=== PATIENT | male | born 1970 | race Caucasian/White ===

== ENCOUNTER 2018-04-09 11:03 | Emergency (ER) | payer BC, MEDICARE ==
[2018-04-09] MEDS ORDERED: Ketorolac 30 MG/ML SDV IM ONE (11:28)
[2018-04-09] MEDS ORDERED: HYDROmorphone 1 MG/ML Syringe IM ONE (11:28)
[2018-04-09] MEDS ORDERED: Orphenadrine 100 MG Tab.ER PO ONE (11:29)
--- NOTE | 2018-04-09 11:35 | EDM.PDOC ---
ED HPI GENERAL MEDICAL PROBLEM - General Chief Complaint: Back Pain or Injury Stated Complaint: BACK PAIN Time Seen by Provider: 04/09/18 11:05 - History of Present Illness INITIAL COMMENTS - FREE TEXT/NARRATIVE: Patient is a 47-year-old male, who has previous history of low back pain and injury to his back while at work approximately 20 years ago; presented to the emergency department for an evaluation of low back pain for last 3 weeks. He stated that he has been having pain in his back for over years however 3 weeks ago while he was working into his truck he somehow twisted his back which causes him pain to his tailbone area which is radiating to his left lower extremity more than right. Currently he rated his pain level at about 8 on a scale of 0-10. Pain he described as sharp shooting type sensation. He also complains of diminished sensation to his left lower extremity and stated that sometimes feels heavy. He further stated that he was recommended to seen by neurosurgery however he never followed up with specialist. He has been taking [id number] pain relief, despite using medication he's pain remains the same. He denies any bowel or bladder incontinence, urinary retention, neck pain , headache, fever, denies any intravenous drug use, shortness of breath, abdominal pain, chest pain, nausea or vomiting. He denies any other concerns at this time. Lower Back Pain Score (Numeric/FACES): 7 - Related Data Allergies Allergy/AdvReac Type Severity Reaction Status Date / Time cefixime [From Suprax] Allergy Nausea and Verified 04/09/18 12:00 Vomiting Penicillins Allergy Rash Verified 04/09/18 12:00 Home Meds: Home Meds Albuterol [Proventil HFA] 2 puff INH Q4H PRN 04/09/18 [History] methylPREDNISolone [Medrol] 4 mg PO ASDIRECTED #1 dosepk 04/09/18 [Rx] Past Medical History HEENT History: Reports: Impaired Vision Respiratory History: Reports: SOB Musculoskeletal History: Reports: Back Pain, Chronic, Neck Pain, Chronic Neurological History: Reports: Brain Injury Social & Family History - Tobacco Use Smoking Status *Q: Former Smoker Used Tobacco, but Quit: Yes Month/Year Tobacco Last Used: 10/2017 - Caffeine Use Caffeine Use: Reports: Coffee - Recreational Drug Use Recreational Drug Use: Yes Drug Use in Last 12 Months: Yes Recreational Drug Type: Reports: Marijuana/Hashish Recreational Drug Use Frequency: Socially ED ROS GENERAL - Review of Systems Review Of Systems: ROS reveals no pertinent complaints other than HPI. ED EXAM,LOWER BACK PAIN/INJURY - Physical Exam Exam: See Below Exam Limited By: No Limitations General Appearance: Alert, WD/WN, No Apparent Distress Head: Atraumatic, Normocephalic Neck: Normal Inspection, Supple, Non-Tender, Full Range of Motion Respiratory/Chest: No Respiratory Distress, Lungs Clear, Normal Breath Sounds Cardiovascular: Normal Peripheral Pulses, Regular Rate, Rhythm GI/Abdominal: Normal Bowel Sounds, Soft, No Abnormal Bruit Back Exam: Normal Inspection, Muscle Spasm (There is a diffuse tenderness to palpation at the midline lumbar spine), Paraspinal Tenderness, Other Extremities: Normal Inspection, Normal Range of Motion, Non-Tender, No Pedal Edema, Normal Capillary Refill Neurological: Alert, Normal Mood/Affect, Normal Dorsiflexion, Normal Plantar Flexion, Normal Gait, Normal Reflexes, Oriented x 3, Other (Positive straight leg raise exam on the left. Diminished sensory exam on the left lower extremity by 2-point discrimination.) Psychiatric: Normal Affect, Normal Mood Skin Exam: Warm, Dry, Intact, Normal Color, No Rash Course - Vital Signs Last Recorded V/S: Last Vital Signs Temp 37.2 C 04/09/18 11:12 Pulse 76 04/09/18 11:12 Resp 20 04/09/18 11:12 BP 148/102 H 04/09/18 11:12 Pulse Ox 100 04/09/18 11:12 - Orders/Labs/Meds Meds: Medications Discontinued Medications Generic Name Dose Route Start Last Admin Trade Name Oliverio PRN Reason Stop Dose Admin Hydromorphone HCl 1 mg 04/09/18 11:28 04/09/18 12:04 Dilaudid IM 04/09/18 11:29 1 mg ONETIME ONE Administration Ketorolac Tromethamine 30 mg 04/09/18 11:28 04/09/18 12:05 Toradol IM 04/09/18 11:29 30 mg ONETIME ONE Administration Orphenadrine Citrate 100 mg 04/09/18 11:29 04/09/18 12:04 Norflex PO 04/09/18 11:30 100 mg ONETIME ONE Administration - Re-Assessments/Exams Free Text/Narrative Re-Assessment/Exam: 04/09/18 12:20 At this time, patient reevaluated at bedside. Patient appears to be resting comfortably on stretcher. Currently patient rated his pain level about 2 or 3 on a scale of 0-10. He stated that medication which were given in the emergency department help him a lot with the pain. Family member at bedside, I discussed the CT scan results with patient and available family member which showed there is a posterior disc bulge to the midline at L4-L5 with mild central canal stenosis. I highly advise patient to follow up with neurosurgery as an outpatient. Patient and available family member verbalize understanding of the given instruction and agrees to comply. At the time of discharge, patient is able to move all 4 of his extremities without any difficulty or pain. Departure - Departure Time of Disposition: 12:35 Disposition: Home, Self-Care 01 Condition: Good Clinical Impression: Sciatica, Low back pain, Lumbar spinal stenosis - Discharge Information Prescriptions: methylPREDNISolone [Medrol] 4 mg PO ASDIRECTED #1 dosepk Instructions: Back Pain, Adult, Sciatica Referrals: Justin Kirkpatrick Jr, MD [Primary Care Provider] - 1 Week (Please call your primary care per wider for reevaluation of today emergency visit.) Bc Suarez MD [Consulting Physician] - 1 Week (Outpatient neurosurgery referral and follow-up) Forms: ED Department Discharge Additional Instructions: Patient has been advised to lifting, twisting, bending, stooping. Advised to use ice pack to the lower back multiple times a day as needed to alleviate pain and discomfort. Also advised to take naproxen 550 mg twice a day over-the- counter as needed for pain control.
--- NOTE | 2018-04-09 12:16 | CT ---
CT lumbar spine Technique: Multiple axial sections were obtained from mid T12 level inferiorly to the bottom of S2. Reconstructed coronal and sagittal images were reviewed. Comparison: No prior lumbar spine imaging is available. Findings: T12-L1: Slight posterior disc space narrowing is seen. Posterior disc maintains a concave margin. No central canal stenosis or neural foraminal stenosis is seen. L1-L2: Posterior disc maintains a concave margin. No central canal stenosis or neural foraminal stenosis is seen. L2-L3: Posterior disc maintains a concave margin. No central canal stenosis or neural foraminal stenosis is seen. L3-L4: Minimal circumferential disc bulge is seen. Posterior disc maintains a slight concave margin. No central canal stenosis or neural foraminal stenosis is seen. L4-L5: Mild posterior disc bulge to the midline is seen. Findings are felt to cause mild central canal stenosis. Neural foramina are patent where the nerve roots exit. L5-S1: Posterior disc is preserved. No central canal stenosis or neural foraminal stenosis is seen. Scattered anterior endplate osteophytes are seen. No fracture is identified. No abnormal subluxation is seen. Impression: 1. Mild posterior disc bulge to the midline at L4-L5 is felt to cause mild central canal stenosis. 2. Other minimal degenerative change as noted above. Diagnostic code #2
== END 2018-04-09 13:01 | disposition home or self-care (01) ==
LOC: JD.ED 11:03
DX: M48.061 Spinal stenosis, lumbar region without neurogenic claudication (principal); M54.42 Lumbago with sciatica, left side; M54.41 Lumbago with sciatica, right side; Z88.0 Allergy status to penicillin; Z87.891 Personal history of nicotine dependence
CPT/HCPCS: 72131; 96372; 99284; A9270; J1170; J1885